=== PATIENT | male | born 1985 | race Caucasian/White ===

== ENCOUNTER 2020-03-07 09:40 | Outpatient (CLI) | payer OTHER, SELFPAY ==
--- NOTE | ~2020-03-07 | MR_ITS ---
EXAMINATION: MR brain/brain stem wo/w con DATE: 03/07/2020 11:00 INDICATION: Chronic migraine. Seeing black dots in the right eye. TECHNIQUE: Magnetic resonance imaging (MRI) of the brain and brainstem was performed without and with 15 mL Multihance intravenous contrast. Sequences included sagittal and axial T1-weighted SE, axial d iffusion-weighted FS SE, axial T2*-weighted GRE, axial T2-weighted FLAIR, and axial T2-weighted FSE. Postcontrast axial and coronal T1-weighted SE was obtained. Apparent diffusion coefficient (ADC) maps were created. COMPARISON: None. FINDINGS: There are no areas of restricted diffusion to suggest acute infarction. No intracranial hemorrhage or abnormal intracranial mass lesion. There are no intraparenchymal signal abnormalities seen on the ot her pulse sequences. The ventricles are symmetric and normal in size. There are no abnormal extra-axi al fluid collections. Flow voids are seen in the cerebral arteries on the T2-weighted sequences consi stent with their expected patency. Visualized orbits and soft tissues are unremarkable. There are no areas of abnormal enhancement on the post contrast images. IMPRESSION: 1. Normal brain MRI. Reviewed, dictated and finalized at location A. IMPRESSION: 1. Normal brain MRI.
[2020-03-07 10:25] LABS: Estimated Glomerular Filt Rate > 60
== END 2020-03-07 09:41 | disposition home or self-care (01) ==
LOC: ANHIMG 09:49
PROVIDERS: PCP Family Medicine; Visit Provider Physician Assistant
DX: G43.009 Migraine without aura, not intractable, without status migrainosus (principal); H30.14 Acute posterior multifocal placoid pigment epitheliopathy
CPT/HCPCS: 36415; 70553; A9577

== ENCOUNTER 2020-04-25 10:33 | Emergency (ER) | payer OTHER, SELFPAY ==
[2020-04-25 10:48] VITALS: BP 133/101; PULSE 93; RESP 16; TEMP 36.7; O2SAT 99
--- NOTE | 2020-04-25 11:20 | ED.EYEPROB ---
HPI - Eye Problem General Chief complaint: Eye Problems Stated complaint: left eye pain/redness Time Seen by Provider: 04/25/20 11:10 Source: patient Mode of arrival: ambulatory Limitations: no limitations History of Present Illness HPI Narrative: Dave Waggoner is a 35 yo male with a PMH of migraine headache who comes to express care with left eye injection and a history of mowing grass for the last 3 to 4 days. Patient is also being worked up for potential arteritis temporal-itis due to right eye symptoms in the last 2 months. He has had black spots in the right eye and abnormal exams by mattress filler that was sent to a neurologist. He has been started on amitriptyline but is having an MRI today to rule out blood vessel inflammation in his brain. Patient states that the symptoms in his left eye appear to be related to his cutting grass Related Data Home Medications Medication Instructions Recorded Confirmed amitriptyline 25 mg PO HS 04/25/20 04/25/20 Allergies Allergy/AdvReac Type Severity Reaction Status Date / Time No Known Allergies Allergy Verified 04/25/20 10:54 Review of Systems Review of Systems: Narrative: CONSTITUTIONAL: Denies fever, chills, sweats. EYES: Denies visual changes, has redness, discharge. ENT: Denies rhinorrhea, congestion, sore throat, otalgia. CARDIOVASCULAR: Denies chest pain, palpitations, edema. RESPIRATORY: Denies dyspnea, wheezing, cough GASTROINTESTINAL: Denies abdominal pain, nausea, vomiting, diarrhea. GENITOURINARY: Denies dysuria, hematuria, abnormal discharge SKIN: Denies rash or itching. NEUROLOGIC: Denies numbness, or focal weakness. PSYCHIATRIC: Denies anxiety or depression. [facility] Past Medical History Medical History Migraine headache Family History Family History Mother Heart disease Hypertension Arthritis Cardiomyopathy Father Hypertension Hyperlipidemia Social History Social History Smoking status: Never smoker Alcohol intake: current Gender identity (if verbalized by the patient): Male Comments At time of signature, I agree with nursing past medical, surgical, social and family history. There is no relevant family history pertinent to the presenting complaint. Patient's blood pressure is elevated due to other medical situations currently being treated for. Exam Narrative: Exam Narrative: GENERAL: This is a well-nourished, well-developed patient, in mild distress. HEAD: normocephalic, atraumatic. EYES: PERRL. Sclera clear on the right; injected on left, vision is grossly intact. However states along with irritation has eye pain 4 out of 10 EARS: External ears normal, . Hearing grossly intact. NOSE: External nose normal without nasal discharge, nares without redness, no rhinorrhea. THROAT: Mucous membranes moist, posterior pharynx NECK: Neck supple, CARDIOVASCULAR: Regular rate and rhythm without murmurs, gallops, or rubs. RESPIRATORY: Clear to auscultation. Breath sounds equal bilaterally. No wheezes, rales, or rhonchi. GASTROINTESTINAL: Abdomen soft, SKIN: warm, intact with no suspicious lesions or rash, good texture and turgor. NEURO: awake, alert, and oriented to person, place and time. There were no obvious focal neurologic abnormalities. Steady gait EXTREMITIES: Normal range of motion. BACK: Nontender without deformity Course Course Emergency Course: Zamora lamp exam deferred since injection seems to be related to mowing grass and patient is scheduled for an MRI this afternoon to be looking at both eyes and blood vessel confirmation of the brain. Started on polymyxin antibiotic for the eye Follow-up with ophthalmology Vital Signs Vital signs: Vital Signs Temperature 98.1 F 04/25/20 10:48 Pulse Rate 93 04/25/20 10:48 Respiratory Rate 16 04/25/20 10
== END 2020-04-25 11:31 | disposition home or self-care (01) ==
PROVIDERS: Emergency Provider Nurse Practitioner; PCP Family Medicine
DX: H10.32 Unspecified acute conjunctivitis, left eye (principal); I10 Essential (primary) hypertension
CPT/HCPCS: 99213; G0463

== ENCOUNTER 2020-04-25 12:40 | Outpatient (CLI) | payer OTHER, SELFPAY ==
--- NOTE | ~2020-04-25 | MR_ITS ---
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 TECHNIQUE: Magnetic resonance angiography (MRA) of the brain was performed without intravenous contra st with T1-weighted SPGR by the 3D [id number] technique. Maximum intensity projection 3D-reconstr uctions were obtained. COMPARISON: Brain MRI 03/07/2020 FINDINGS: Left vertebral artery is dominant. There is no significant stenosis of basilar artery or the posterio r cerebral arteries. There is no significant stenosis of the intracranial internal carotid arteries o r anterior or middle cerebral arteries. Right A1 anterior cerebral artery segment is very small or ab sent, a normal variant. Posterior communicating arteries are not identified. There is no aneurysm. IMPRESSION: 1. Normal MRA. Reviewed, dictated and finalized at location A. IMPRESSION: 1. Normal MRA.
--- NOTE | ~2020-04-25 | MR_ITS ---
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 TECHNIQUE: Magnetic resonance angiography (MRA) of the neck was performed without and with 15 mL Mult iHance intravenous contrast. Sequences included axial 2D-time of flight T1-weighted FSPGR, axial Inha nce, and coronal T1-weighted FSPGR without and with intravenous contrast. COMPARISON: None. FINDINGS: Left vertebral artery is dominant. There is no significant stenosis of the vertebral arteries. There is no visible plaque in the proximal internal carotid arteries. There is 0% stenosis of the proximal right internal carotid artery relative to normal distal artery lumen diameter (NASCET criteria). The re is 0% stenosis of the proximal left internal carotid artery relative to normal distal artery lumen diameter. There is a 4.0 x 1.3 x 1.0 cm mass anterior to the supraglottic larynx and between the str ap muscles. IMPRESSION: 1. Normal neck arteries. 2. 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 Neck CT with contrast is recommended. Reviewed, dictated and finalized at location A.
[2020-04-25 13:26] LABS: Estimated Glomerular Filt Rate > 60
== END 2020-04-25 12:41 | disposition home or self-care (01) ==
PROVIDERS: PCP Family Medicine
DX: H30.14 Acute posterior multifocal placoid pigment epitheliopathy (principal)
CPT/HCPCS: 36415; 70544; 70549; A9577

== ENCOUNTER 2024-11-21 08:34 | Outpatient (CLI) | payer OTHER, SELFPAY ==
--- OUTSIDE RECORDS SUMMARY | 2024-11-21 08:47 | XMS_ITS | Clinical Summary ---
Author Organization [facility] Care Team Providers Care Stopper Maker Helper Name Role Phone Unavailable Primary Care Provider Unavailabl e Immunizations Immunization Administration Dates Next Due Covid-19, Mrna, Lnp-s, Pf, 30 Mcg/0.3 Ml Dose (P fizer) 09/15/2021 Social History Tobacco Use Types Packs/Day Years Used Date Smoking Tobacco: Never Assessed Sex and Gender Information Value Date Recorded Sex Assigned at Not on file Legal Sex Male 11:15 AM [employer] Gender Identity Not on file Sexual Orientation Not on file Plan of Treatment Health Maintenance Due Date Last Done Comments Hepatitis C Virus (HCV) Screening 1985 Hepatitis B Immunization (1 of 3 - 19+ 3-dose series) 2005 Influenza Immunization (#1) 2024 SARS-COV-2 Immunization ( season) 2024 09/15/2021, 11/14/2020, 10/17/2020 Respiratory Syncytial Virus (RSV) Immunization (Adult) (1 - 1-dose 75+ series) 2061 DTaP/Tdap/Td Immunization Discontinued 03/29/2020 TdaP Immunization Completed 03/29/2020 Meningococcal Immunization (ACWY) Aged Out No longer eligible based on patient's age to complete this topic Pneumococcal Immunization Combined Aged Out No longer eligible based on patient's age to complete this topic Rotavirus Immunization Aged Out No lo nger eligible based on patient's age to complete this topic
[2024-11-21 13:28] LABS: Hematocrit 49.7 % (42.0-52.0); Hemoglobin 16.4 g/dL (14.0-18.0); Mean Corpuscular Hemoglobin 29.5 pg (26-34); Mean Corpuscular Volume 89.4 fl (80-100); Mean Platelet Volume 9.8 fl (7.4-10.4); Platelet Count Result 187 k/mm3 (150-375); Red Blood Count 5.56 M/mm3 (4.6-6.20); Red Cell Distribution Width 13.1 % (11.5-14.5); White Blood Count 7.2 K/mm3 (4.5-10.0)
[2024-11-21 13:52] LABS: Alanine Aminotransferase 24 U/L (6-50); Albumin Level 4.6 g/dL (3.5-5.1); Alkaline Phosphatase 83 U/L (38-126); Anion Gap 10 mmol/L (4-12); Aspartate Amino Transferase 38 U/L (17-59); Bilirubin,Total 1.2 mg/dL (0.2-1.3); Blood Urea Nitrogen 16 mg/dL (9-20); Calcium 9.3 mg/dL (8.4-10.2); Carbon Dioxide 28 mmol/L (22-30); Chloride 102 mmol/L (98-107); Cholesterol 160 mg/dL (0-200); Estimated Glomerular Filt Rate > 60; Glucose 90 mg/dL (65-110); HDL Direct 32 mg/dL; Potassium 4.4 mmol/L (3.4-5.0); Sodium 140 mmol/L (137-145); Triglycerides 206 mg/dL (<150)
[2024-11-21 14:04] LABS: LDL Cholesterol Direct 85 mg/dL
== END 2024-11-21 08:35 | disposition home or self-care (01) ==
LOC: ANHGOSHLAB 08:35
PROVIDERS: PCP Family Medicine; Visit Provider Nurse Practitioner
DX: Z76.89 Persons encountering health services in other specified circumstances (principal)
CPT/HCPCS: 36415; 80053; 80061; 84443; 85027

== ENCOUNTER → 2025-01-15 11:22 | Outpatient (REF) | payer OTHER, SELFPAY ==
--- OUTSIDE RECORDS SUMMARY | 2025-01-15 11:34 | XMS_ITS | Clinical Summary ---
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
== END ==
LOC: ANHLAB 11:22
PROVIDERS: PCP Family Medicine; Visit Provider Plastic Surgery
DX: D48.5 Neoplasm of uncertain behavior of skin (principal)
CPT/HCPCS: 88305

== ENCOUNTER 2025-02-13 01:27 | Day surgery (SDC) | payer OTHER, SELFPAY ==
[2025-02-02 13:51] VITALS: BMI 25.9
--- OUTSIDE RECORDS SUMMARY | 2025-02-13 01:30 | XMS_ITS | Clinical Summary ---
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
[2025-02-13 09:36] VITALS: BP 125/90; PULSE 73; RESP 18; TEMP 36.4; O2SAT 100
--- NOTE | 2025-02-13 09:41 | P.PNAN_ITS ---
Anes - Initial Pre Proc Eval Procedure: Operation Date: 02/13/25 10:30 Proposed Procedures p Colonoscopy - Tho Starr MD Date/Time: 02/13/25 09:41 Surgeon: Tho Starr MD Pre Op Diagnosis: Family Hx of malignant neoplasm of digestive organ Patient Data Age: 39 Gender: M Height: 1.78 m Weight: 81.2 kg Last Vital Signs Temp 36.4 C 02/13/25 09:36 Pulse 73 02/13/25 09:36 Resp 18 02/13/25 09:36 BP 125/90 02/13/25 09:36 Pulse Ox 100 02/13/25 09:36 O2 Del Method Room Air 02/13/25 09:36 Allergies Allergy/AdvReac Type Severity Reaction Status Date / Time No Known Allergies Allergy Verified 02/13/25 09:35 Home Medications ?Medication ?Instructions ?Recorded ?Confirmed ?Type ubrogepant 50 mg tablet (Ubrelvy) 50 mg PO ONCE #10 tabs 11/21/24 02/02/25 Rx Patient hx anesthesia problems: none Family hx anesthesia problems: none Results Review: All pre-operative results and documents have been reviewed as part of the pre- operative evaluation. [facility] Past Medical History Medical History Migraine headache Family History Family History Mother Heart disease Hypertension Arthritis Cardiomyopathy Father Hypertension Hyperlipidemia Colon cancer Social History Social History Smoking status: Never smoker Alcohol intake: current Drinks per week: 2 Substance use: current Substance use type: other Other substance usage details: THC gummies occasionally Last use: 3 weeks ago Do You Feel Safe in your Home?: Yes Living arrangements: with family Gender identity (if verbalized by the patient): Male Spiritual care concerns: No Anes - Eval Final PreProcedure Day of Procedure 02/13/25 09:41 Patient weight: overweight Heart: regular rate and rhythm Lungs: clear to auscultation Airway: Mallampati scale class II Neurological: alert and oriented Last oral intake: >/= 8 hours ASA classification: I Emergent: no Anesthetic plan: proceed Anesthesia type and monitoring: general GIVS and standard monitoring Results Review: All pre-operative results and documents have been reviewed as part of the pre- operative evaluation. Informed Consent: The patient's anesthetic plan and its attendant risks and benefits were discussed with the patient/family/POA. Questions were solicited and answers provided to the satisfaction of the patient/family/POA.
[2025-02-13] MEDS: LACTATED RINGERS 1,000 ML 150 ML IV CONT (09:46)
--- NOTE | 2025-02-13 10:16 | PM.HPGS ---
History of Present Illness History of Present Illness Consent: Risks, benefits, and alternatives have been discussed and questions answered. Patient agrees to proceed with procedure. Chief complaint: Family Hx of malignant neoplasm of digestive organ Narrative: Dave Waggoner is a 39 year old male here for first colonoscopy, father had colon cancer Review of Systems Review of Systems: All systems reviewed & are unremarkable except as noted in HPI and below PMFSH Past Medical History Medical History Migraine headache Family History Family History Mother Heart disease Hypertension Arthritis Cardiomyopathy Father Hypertension Hyperlipidemia Colon cancer Social History Social History Smoking status: Never smoker Alcohol intake: current Drinks per week: 2 Substance use: current Substance use type: other Other substance usage details: THC gummies occasionally Last use: 3 weeks ago Do You Feel Safe in your Home?: Yes Living arrangements: with family Gender identity (if verbalized by the patient): Male Spiritual care concerns: No Meds Home Medications and Allergies Home Medications ?Medication ?Instructions ?Recorded ?Confirmed ?Type ubrogepant 50 mg tablet (Ubrelvy) 50 mg PO ONCE #10 tabs 11/21/24 02/02/25 Rx Allergies Allergy/AdvReac Type Severity Reaction Status Date / Time No Known Allergies Allergy Verified 02/13/25 09:35 Vital Signs Vital Signs - 24 hr 02/13/25 09:36 Temperature 97.6 F Pulse Rate 73 Respiratory Rate 18 Blood Pressure 125/90 Pulse Oximetry 100 Oxygen Delivery Room Air Exam Const: General: comfortable and no acute distress HENMT: Face/Nose/Sinus: Normal nares present Eyes: General: appearance normal, both eyes and all related structures Neck: Neck: no JVD Resp: Auscultation: clear to auscultation bilaterally Cardio: Rate: regular rate Rhythm: regular rhythm GI: Inspection: non-distended GI Palp: Yes Soft to palpation Skin: General skin exam: normal color Neuro: General: gait normal Speech: normal speech Extrem: General: normal to inspection Psych: Mental Status: mental status grossly normal Assessment and Plan Assessment and plan (1) Family history of colon cancer: Code(s): Z80.0 - Family history of malignant neoplasm of digestive organs Status: Acute Assessment and Plan: colonoscopy
--- NOTE | 2025-02-13 10:31 | S_PTH ---
PATIENT: Dave Waggoner LOC: [facility]#:[id number] AGE/SX: 39/M ROOM: RE02/13/[address]: Tho Starr MD : 1985 BED: DIS: 02/13/2025 SPEC #: [id number] RECD: 02/13/25 10:48 STATUS: PATRICIA REShirley #: [id number] KATELYNN: 02/13/25 10:[address]: Tho Starr DEPT: [facility] Surgical RECD BY: Rani Enciso ENTERED: 02/13/25 10:48 SP TYPE: Surgical OTHR DR: Cherry Manning DO Tissues: A - Colon Polypectomy Procedures: Hematoxylin and Eosin Stain Gross and Microscopic Level 4
[2025-02-13 10:35] VITALS: BP 102/75; PULSE 85; RESP 19; O2SAT 95
[2025-02-13 10:45] VITALS: BP 119/87; PULSE 78; RESP 17; O2SAT 98
[2025-02-13 10:55] VITALS: BP 112/85; PULSE 75; RESP 15; O2SAT 99
== END 2025-02-13 11:04 | disposition home or self-care (01) ==
PROVIDERS: PCP Family Medicine; Referring Provider Nurse Practitioner; Visit Provider Internal Medicine Gastroenterology
PROC: 0DJD8ZZ Inspection of Lower Intestinal Tract, Via Natural or Artificial Opening Endoscopic (ICD-10-PCS; CPT 45378; principal; 2025-02-13 10:30)
DX: Z12.11 Encounter for screening for malignant neoplasm of colon (principal); K63.5 Polyp of colon; Z80.0 Family history of malignant neoplasm of digestive organs
CPT/HCPCS: 45385; 88305; J2003; J2704; J7120